=== PATIENT | female | born 1935 | race Caucasian/White ===

== ENCOUNTER 2020-06-08 07:17 | Emergency (ER) | payer MEDICARE, OTHER, SELFPAY ==
[2020-06-08 07:45] VITALS: BP 197/85; PULSE 60; RESP 16; TEMP 36.5; O2SAT 96
--- NOTE | 2020-06-08 07:48 | ED.GENADULT ---
HPI - General Adult General Chief complaint: Extremity Problem,Nontraumatic Stated complaint: LEFT HIP PAIN Time Seen by Provider: 06/08/20 07:43 Source: patient and other (Power of staff attorney) Mode of arrival: Wheelchair Limitations: no limitations History of Present Illness HPI narrative: Patient is an 84-year-old female who has had issues with her hips in the past. She states she had a left hip ?repair ?many years ago. She is here because of discomfort in her left hip. There has been no reported new falls. Less than 1 week ago she was moved into a new living facility and the nurse practitioner there has not had a chance to complete her initial assessment so it appears she does not have any pain medication written for her. She states that last evening the discomfort in her hip was severe. It is reported by the patient's [id number] who is with her here in the emergency department at the living facility would not contact the provider in order to get a prescription for pain medications to their here in the emergency department. Patient states that it hurts when she is in certain positions and also to stand. Related Data Home Medications Medication Instructions Recorded Confirmed [CYTOMEL] 10 mcg PO Q DAY #0 05/01/07 Previous Rx's Medication Instructions Recorded lorazepam [Ativan] 0.5 mg PO QPM PRN #10 tab 12/03/15 Allergies Allergy/AdvReac Type Severity Reaction Status Date / Time celecoxib Allergy Unknown Verified 06/08/20 08:57 erythromycin base Allergy Unknown Verified 06/08/20 08:57 Review of Systems Constitutional Constitutional: Denies fever(s) Cardiovascular Cardiovascular: Denies chest pain and Denies dyspnea Respiratory Respiratory: Denies dyspnea Gastrointestinal Gastrointestinal: Denies abdominal pain Musculoskeletal Comments: Left hip pain Integumentary/Breasts Skin/Breast: Denies rash Neurologic Neurologic: Denies behavioral changes Psychiatric Psychiatric: Denies behavioral changes Hematologic/Lymphatic On Anticoagulants: No Allergic/Immunologic Allergic/Immunologic: Denies urticaria Patient History Medical History Insomnia Labile hypertension Social History housing: senior care Smoking Status: Never smoker Exam Initial Vital Signs Initial Vital Signs: Vital Signs Temperature 97.7 F 06/08/20 07:45 Pulse Rate 60 06/08/20 07:45 Respiratory Rate 16 06/08/20 07:45 Blood Pressure 197/85 H 06/08/20 07:45 Pulse Oximetry 96 06/08/20 07:45 Const General: cooperative HENMT Head: normal to inspection and normocephalic Resp Effort & Inspection: normal respiratory effort Auscultation: clear to auscultation bilaterally Cardio Rate: regular rate Skin Lesions: no lesions Rashes: no rashes Neuro General: patient alert and patient awake Sensory Exam: no sensory deficits noted Extrem Other: Patient does not have tenderness to palpation of the left hip but does have tenderness to palpation with moving especially internal and externally rotating. Psych Appearance: grossly normal and well kempt Course Orders Ordered: ED Orders 06/08/20 07:48 XR hip w pel if done LT 2V Stat Vital Signs Vital signs: Vital Signs - 8 hr 06/08/20 07:45 Temperature 97.7 F Pulse Rate 60 Respiratory Rate 16 Blood Pressure 197/85 H Pulse Oximetry 96 Medical Decision Making Imaging Data Extremity x-ray #1: Radiologist's Impression: [address] [id number] ReportSigned Patient: Maria Eugenia Carpenter JMR#: [id number]: [id number]:[id number]/Sex: 84 / FDate of Service: 06/08/20Loc: EDAccession Number: [id number] Procedure: XR hip w pel if done LT 2V Ordering Provider: Samir Howard D.O. PROCEDURE: XR HIP W PEL IF DONE LT 2V INDICATIONS: groin pain hard to walk TECHNIQUE: AP pelvis with lateral view(s) of the left hip(s). COMPARISON: None. FINDINGS: Bones: No definite fracture although exam suboptimal by severe degenerative and postoperative changes. Lumbar spondylosis and vertebroplasty. Right hip arthroplasty and internal fixation of the left proximal femur. Hardware appears intact . Soft tissues: The visualized bowel gas pattern is normal. No suspicious soft tissue calcifications. IMPRESSION: No radiographically visible fracture. Postsurgical and degenerative changes as above Dictated by: Abbe Jones M.D. on 06/08/2020 at 8:52 Approved by: Abbe Jones M.D. on 06/08/2020 at 8:56 [facility] Narrative Medical decision making narrative: X-ray shows no acute fractures. I suspect that the patient's discomfort is related to inadequate pain control. She is currently on Percocet at 0800 hours in the morning and 2 in the afternoon and then 2 tablets at night before bedtime. Plan abuse to change her from this to 1 tablet at 8, 1 tablet at noon and 1 tablet at 4 and then 2 tablets at night before she goes to bed. Prescription was written for this for her nursing facility. Patient will be discharged home. She was given return precautions. Both her and her power of staff attorney expressed understanding and agreement. Discharge Plan Departure Patient Disposition: Home Clinical Impression: Hip pain, left Instructions: How to Prevent Falls Activity Restrictions/Additional Instructions: I recommend that the nursing facility make changes to the Percocet that is written on the prescription. This can be changed when her initial intake evaluation is completed by the nurse practitioner. Please return to the emergency department for any new or worsening symptoms Prescriptions: No Action [CYTOMEL] 10 mcg PO Q DAY Qty: 0 RF: 0 lorazepam [Ativan] 0.5 MG tablet 0.5 mg PO QPM PRNQty: 10 RF: 0
[2020-06-08] MEDS: OXYCODONE/ACETAMINOPHEN 5/325 TABLET 1 TAB PO (09:25)
[2020-06-08 09:40] VITALS: BP 188/70; PULSE 77; RESP 16; O2SAT 100
== END 2020-06-08 09:40 | disposition home or self-care (01) ==
PROVIDERS: Emergency Provider Emergency Medicine; Family Provider Family Medicine
DX: M25.552 Pain in left hip (principal)
CPT/HCPCS: 73502; 99283